=== PATIENT | male | born 1990 | race Caucasian/White ===

== ENCOUNTER 2017-05-29 18:36 | Emergency (ER) | payer MEDICAID ==
[2017-05-29] MEDS: BENOXINATE HCL/FLUORESCEIN SOD 5 ML OPHTH LEFT EYE (20:15)
== END 2017-05-29 21:08 | disposition home or self-care (01) ==
LOC: FTE 18:36
DX: H57.8 Other specified disorders of eye and adnexa (principal)
CPT/HCPCS: 99283; Z7502